=== PATIENT | male | born 1980 ===

== ENCOUNTER 2017-09-04 17:52 | Emergency (ER) | payer BC ==
[~2017-09-04] VITALS: Ht 182.9 cm; Wt 100.0 kg
[2017-09-04] MEDS ORDERED: KETOROLAC TROMETHAMINE 60 MG/2 ML VIAL IM ONE (19:45)
[2017-09-04] MEDS ORDERED: POVIDONE-IODINE 10% 15 ML SOLUTION UD TP ONE (19:45)
[2017-09-04 21:28] VITALS: BP 122/84
== END 2017-09-04 21:55 | disposition home or self-care (01) ==
LOC: EMS 17:58
DX: S80.02XA Contusion of left knee, initial encounter (principal); S80.01XA Contusion of right knee, initial encounter; F17.210 Nicotine dependence, cigarettes, uncomplicated; V29.9XXA Motorcycle rider (driver) (passenger) injured in unspecified traffic accident, initial encounter; Y93.55 Activity, bike riding; Y92.488 Other paved roadways as the place of occurrence of the external cause; Y99.8 Other external cause status
CPT/HCPCS: 29125; 71045; 73110; 73562; 96372; 99284; J1885